=== PATIENT | female | born 1985 | race Caucasian/White ===

== ENCOUNTER 2017-08-13 17:10 | Outpatient (CLI) | payer OTHER ==
[~2017-08-13 17:10] MED LIST: IMITREX50 MG PO; WELLBUTRIN SR150 MG PO
[2017-08-13 17:23] VITALS: BP 140/87
[2017-08-13] MEDS ORDERED: FOLGARD RX1 TABLET PO (17:39)
[2017-08-13] MEDS ORDERED: CLARITIN,ALAVAR10 MG PO (17:39)
[2017-08-13] MEDS ORDERED: EXPECTA PRENAT1 EACH PO (17:40)
[2017-08-13] MEDS ORDERED: CHILD ASPIRIN81 M1 PO (17:40)
[2017-08-13 17:53] VITALS: BP 139/83
[2017-08-13 19:17] VITALS: BP 132/72
== END 2017-08-13 20:40 | disposition home or self-care (01) ==
LOC: LDRP-OP 17:10 → 2WEST 17:11 → LDRP-OP 10-22 09:37
DX: Z04.1 Encounter for examination and observation following transport accident (principal); O09.13 Supervision of pregnancy with history of ectopic pregnancy, third trimester; O99.213 Obesity complicating pregnancy, third trimester; Z68.34 Body mass index [BMI] 34.0-34.9, adult; Z3A.34 34 weeks gestation of pregnancy
CPT/HCPCS: 59025; G0378

== ENCOUNTER 2017-09-27 23:20 | Inpatient (IN) | payer OTHER ==
[~2017-09-27] VITALS: Ht 167.6 cm; Wt 102.0 kg
[~2017-09-27 23:20] MED LIST changes: +CHILD ASPIRIN81 M1 PO; +CLARITIN,ALAVAR10 MG PO; +EXPECTA PRENAT1 EACH PO; +FOLGARD RX1 TABLET PO
[2017-09-27 23:29] VITALS: BP 141/83
[2017-09-28] VITALS (8 sets, daily range): BP systolic 130–155; BP diastolic 66–89
[2017-09-28] MEDS ORDERED: IBUPROFEN800 MG PO (00:35)
[2017-09-28] MEDS ORDERED: ONE DAILY FOR1 EAC1 PO (03:31)
[2017-09-28] MEDS ORDERED: VITAMIN D2000 UNI1 PO (03:32)
[2017-09-29 06:23] LABS: BASOPHIL (%) 0.6 % (0-1); BASOPHIL COUNT 0.1 K/uL (0-0.1); EOSINOPHIL (%) 3.1 % (0-5); EOSINOPHIL COUNT 0.4 K/uL (0-0.3); HEMATOCRIT 32.1 % (36.0-46.0); HEMOGLOBIN 10.7 G/DL (11.9-15.5); IMMATURE GRANULOCYTE (%) 0.5 % (0.0-0.7); LYMPHOCYTE (%) 27.7 % (15-42); MCH 28.5 PG (29.0-34.0); MCHC 33.3 G/DL (30.0-36.0); MCV 85.6 FL (83-99); MONOCYTE (%) 5.9 % (3-12); MONOCYTE COUNT 0.8 K/uL (0-0.8); NEUTROPHIL (%) 62.2 % (45-76); NEUTROPHIL COUNT 8.9 K/uL (1.8-6.4); PLATELET COUNT 237 K/uL (156-360); RBC DIS.WIDTH-CV 13.2 % (11.8-14.6); RBC DIS.WIDTH-SD 41.2 % (39-53); RED BLOOD COUNT 3.75 M/uL (3.80-5.20); WHITE BLOOD COUNT 14.4 K/uL (4.1-10.2)
[2017-09-29 07:21] VITALS: BP 128/74
[2017-09-29 16:11] VITALS: BP 138/84
== END 2017-09-30 13:31 | disposition home or self-care (01) | DRG 775 ==
LOC: LDRP-OP 23:20 → 2WEST 23:21 → LDRP-OP 10-22 21:14
PROVIDERS: Nurse Practitioner
PROC: 10E0XZZ Delivery of Products of Conception, External Approach (ICD-10-PCS; principal; 2017-09-28)
DX: O99.214 Obesity complicating childbirth (principal); O99.354 Diseases of the nervous system complicating childbirth; O62.3 Precipitate labor; O70.0 First degree perineal laceration during delivery; E66.9 Obesity, unspecified; Z37.0 Single live birth; Z3A.41 41 weeks gestation of pregnancy; O48.0 Post-term pregnancy; N97.9 Female infertility, unspecified; G43.909 Migraine, unspecified, not intractable, without status migrainosus; O12.04 Gestational edema, complicating childbirth; Z68.36 Body mass index [BMI] 36.0-36.9, adult
CPT/HCPCS: 85025; G0378; J2590